=== PATIENT | male | born 1965 | race Caucasian/White ===

== ENCOUNTER 2023-07-02 13:28 | Inpatient (IN) | payer OTHER ==
[~2023-07-02] VITALS: Ht 193 cm; Wt 114.6 kg
[2023-07-02 15:32] LABS: International Normalized Ratio 2.06; Prothrombin Time Results 20.8 Sec (9.7-11.5)
[2023-07-02 15:41] LABS: Albumin, Blood 1.8 g/dL (3.4-5.0); Albumin/Globulin Ratio 0.4 (0.8-1.8); Bilirubin, Direct 23.8 mg/dL (0.0-0.3); Bilirubin, Indirect 2.1 mg/dL (0.1-0.7); Bilirubin, Total 25.9 mg/dL (0.1-1.0); Globulin, Blood 4.7 g/dL (2.2-4.0); Total Protein, Blood 6.5 g/dL (6.4-8.2)
[2023-07-02 17:25] LABS: Amylase, Body Fluid 42 U/L; Glucose, Body Fluid 115 mg/dL; Lactate Dehydrogenase, Body Fl 81 U/L; Protein, Body Fluid 1.3 g/dL
[2023-07-02 17:55] LABS: Body Fluid WBC Count 40 /mm3 (0-999)
[2023-07-02 18:04] LABS: RBC Count, Body Fluid 102 /mm3 (0-0)
[2023-07-02 19:12] VITALS: BP 113/73
[2023-07-02] MEDS ORDERED: ATOR10 PO (19:24)
[2023-07-02 19:51] LABS: Base Excess Venous 6.3 mmol/L; Bicarbonate Venous 29.1 mmol/L (24.0-30.0); PCO2 Venous 42.3 mmHg (38-42); pH Blood Venous 7.46 (7.34-7.37)
[2023-07-02 20:39] LABS: Appearance, Body Fluid Hazy (Clear); Color, Body Fluid Yellow (None-Yellow); Total Cell Count, Body Fluid 100
[2023-07-02 21:47] LABS: Albumin, Body Fluid 0.5 g/dL
--- NOTE | 2023-07-03 04:44 | NUR ---
SHIFT SUMMARY *CORI* ARRIVED TO THE UNIT AROUND 1939. PT WAS ALERT AND FULLY ORIENTED AND ABLE TO SELF TRANSFER TO THE BED. PT IS JAUNDICED. PT COMPLAINS OF "FULLNESS" SENSATION, BUT DENIES PAIN. THE PT HAD NO ACUTE EVENTS THIS SHIFT, AND IS RESTING IN BED WITH THE CALL LIGHT IN REACH. THE PATIENT'S MOTHER IS PRESENT IN THE ROOM. ADMIT COMPLETE.
[2023-07-03 05:12] VITALS: BP 113/82
[2023-07-03 05:25] LABS: International Normalized Ratio 2.23; Prothrombin Time Results 22.4 Sec (9.7-11.5)
[2023-07-03 05:45] LABS: Albumin, Blood 1.6 g/dL (3.4-5.0); Albumin/Globulin Ratio 0.4 (0.8-1.8); Bilirubin, Total 24.6 mg/dL (0.1-1.0); Calcium, Blood 8.2 mg/dL (8.5-10.1); Creatinine, Blood 0.93 mg/dL (0.60-1.20); Globulin, Blood 4.1 g/dL (2.2-4.0); Magnesium, Blood 2.2 mg/dL (1.6-2.4); Total Protein, Blood 5.7 g/dL (6.4-8.2)
[2023-07-03 07:11] LABS: Hematocrit 31.1 % (37.0-53.0); Mean Corpuscular Volume 108 fL (80-100); Mean Platelet Volume 11.3 fL (9.1-12.4); Platelet Count 162 K/mm3 (150-400); RDW Coefficient Variation 17.2 % (11.7-14.2); RDW Standard Deviation 67.9 fL (35.1-46.3); Red Blood Cell Count 2.89 M/mm3 (4.30-5.90); White Blood Cell Count 12.73 K/mm3 (4.00-11.30)
[2023-07-03 07:12] LABS: Hemoglobin 12.3 g/dL (13.5-17.5); Mean Corpuscular HGB 39.8 pg (26.0-34.0)
[2023-07-03 07:13] LABS: Mean Corpuscular HGB Conc 36.7 g/dL (31.5-36.5)
[2023-07-03 07:19] VITALS: BP 110/75
[2023-07-03 15:42] VITALS: BP 109/73
--- NOTE | 2023-07-03 17:48 | NUR ---
SHIFT SUMMARY- PT ALLERT, ORIENTED AND INDEPENDENT TO THE BATHROOM. HE HAD A SHOWER TODAY ANND HIS IV WAS ACCIDENTALLY DC'D. NEW IV PLACED IN THE RIGHT FORE ARM, CURRENTLY SALINE LOCKKED. PT MOTHER HAS REMAINED AT THE BEDSIDE T/O THE DAY AND SHE HAS DOTED ON AND PROVIDED CARE FOR THE PT. (AT ONE POINT SHE WAS TRIMMING HIS TOENAILS FOR HIM) PT ALERT AND ORIENTED BUT SEEMS A LITTLE SLOW TO UNDERSTAND SOME THINGS, HIS MOTHER SEEMS TO TRY TO BRIDGE THE GAP FOR HIM QUITE OFTEN. PT HAS DIFFICULTY SWALLOWING LARGE PILLS. HE WAS MEDICATED TWICE TODAY WITH PO POTASSIUM, HE WAS ABLE TO SWALLOW THE PILLS BROKEN IN HALF AND MELTED IN APPLE SAUCE. PT IS ON TELE A FLUTTER WITH A BBB AT 100. PT IS CURRENTLY SITTING AT THE EOB EATING DINNER. NO S&S OF DISTRESS AT THIS TIME.
[2023-07-03 19:48] VITALS: BP 105/68
--- NOTE | 2023-07-04 04:22 | NUR ---
PATIENT IS A/Ox4, BRIGHT AFFECT. NO C/O PAIN NOR DISCOMFORT STATED. PATIENT'S MOTHER AT BEDSIDE THROUGHOUT SHIFT. CONTINUES TO APPEAR JAUNDICED. CONTINUES ON TELE, AFLUTTER 80s TO 90s. INDEPENDENT IN ROOM. NO ACUTE CHANGES NOTED OVERNIGHT. BED LOCKED AND IN LOWEST POSITION, CALL LIGHT WITHIN REACH.
[2023-07-04 04:45] VITALS: BP 110/79
[2023-07-04 06:56] LABS: Albumin, Blood 1.6 g/dL (3.4-5.0); Albumin/Globulin Ratio 0.4 (0.8-1.8); Bun/Creatinine Ratio 15.8 (12.0-20.0); Calcium, Blood 8.2 mg/dL (8.5-10.1); Creatinine, Blood 0.95 mg/dL (0.60-1.20); Globulin, Blood 3.9 g/dL (2.2-4.0); Potassium, Blood 3.5 mmol/L (3.5-5.5); Total Protein, Blood 5.5 g/dL (6.4-8.2)
[2023-07-04 07:09] LABS: BASOPHILS ABSOLUTE AUTO 0.12 K/mm3 (0.00-0.23); BASOPHILS PERCENT AUTO 1 % (0-2); EOSINOPHILS ABSOLUTE AUTO 0.25 K/mm3 (0.00-0.68); EOSINOPHILS PERCENT AUTO 2 % (0-6); Hematocrit 30.3 % (37.0-53.0); IMMATURE GRAN ABSOLUTE AUTO 0.09 K/mm3 (0.00-0.10); IMMATURE GRAN PERCENT AUTO 1 % (0-1); LYMPHOCYTES ABSOLUTE AUTO 1.43 K/mm3 (0.84-5.20); LYMPHOCYTES PERCENT AUTO 12 % (21-46); MONOCYTES ABSOLUTE AUTO 1.19 K/mm3 (0.16-1.47); MONOCYTES PERCENT AUTO 10 % (4-13); Mean Corpuscular Volume 108 fL (80-100); Mean Platelet Volume 11.5 fL (9.1-12.4); NEUTROPHILS ABSOLUTE AUTO 8.74 K/mm3 (1.96-9.15); NEUTROPHILS PERCENT AUTO 74 % (41-73); Platelet Count 178 K/mm3 (150-400); RDW Coefficient Variation 17.2 % (11.7-14.2); RDW Standard Deviation 67.4 fL (35.1-46.3); White Blood Cell Count 11.82 K/mm3 (4.00-11.30)
[2023-07-04 07:11] LABS: Hemoglobin 10.6 g/dL (13.5-17.5)
[2023-07-04 07:12] LABS: Mean Corpuscular HGB 40.5 pg (26.0-34.0); Mean Corpuscular HGB Conc 37.2 g/dL (31.5-36.5)
[2023-07-04 07:40] VITALS: BP 111/80
[2023-07-04 08:11] LABS: HBSAG SCREEN Negative (Negative); HCV AB Non Reactive (Non Reactive); HEP A AB, IGM Negative (Negative); HEP B CORE AB, TOT Negative (Negative)
[2023-07-04 11:15] LABS: Stool Occult Blood Guaiac 1 Neg (Neg)
[2023-07-04 11:36] LABS: Percent Saturation 110.1 % (20.0-50.0)
[2023-07-04 17:15] VITALS: BP 114/75
[2023-07-04 19:22] VITALS: BP 112/78
--- NOTE | 2023-07-04 19:38 | NUR ---
SHIFT SUMMARY- PT HAS HAD NO ACUTE CHANGES T/O THE SHIFT. HE IS ALERT, ORIENTED AND INDEPENDENT IN THE ROOM. MOTHER IS AT THE BEDSIDE. PLAN IS FOR DISCHARGE TOMORROW MORNING. DR SOLORIO ORDERED PREDNISOLONE FOR THE PT DAILY, SPOKE TO HER ABOUT THE START TIME AND RECIEVED ORDER TO START IT TODAY RATHER THAN TOMORROW MORNING. ORDER CHANGED IN ORDER MANAGEMENT, PT RECIEVED THE FIRST DOSE TODAY. BBEDSIDE REPORT COMPLETED WITH NIGHT RRN. PT IN BED, CALL LIGHT IN REACH MOTHER AT THE BEDSIDE NO S&S OF DISTRESS NOTED.
[2023-07-05 02:17] VITALS: BP 116/84
--- NOTE | 2023-07-05 04:00 | NUR ---
SHIFT SUMMARY PT AWAKE DURING SHIFT REPORT, RESTING QUIETLY IN BED WATCHING TV. PT'S MOM AT BS. PT'S SKIN VERY JAUNDICED D/T LIVER FAILURE. PT ENCOURAGED TO STOP DRINKING. UP INDEPENDENTLY IN AND TO BTHRM. PT DENIED FURTHER NEEDS. NO C/O PAIN. CALL LT IN REACH.
[2023-07-05 06:14] LABS: BASOPHILS ABSOLUTE AUTO 0.02 K/mm3 (0.00-0.23); BASOPHILS PERCENT AUTO 0 % (0-2); EOSINOPHILS PERCENT AUTO 0 % (0-6); Hematocrit 32.4 % (37.0-53.0); Hemoglobin 11.8 g/dL (13.5-17.5); IMMATURE GRAN ABSOLUTE AUTO 0.08 K/mm3 (0.00-0.10); IMMATURE GRAN PERCENT AUTO 1 % (0-1); LYMPHOCYTES ABSOLUTE AUTO 0.87 K/mm3 (0.84-5.20); LYMPHOCYTES PERCENT AUTO 7 % (21-46); MONOCYTES ABSOLUTE AUTO 0.47 K/mm3 (0.16-1.47); MONOCYTES PERCENT AUTO 4 % (4-13); Mean Corpuscular HGB 39.9 pg (26.0-34.0); Mean Corpuscular HGB Conc 36.4 g/dL (31.5-36.5); Mean Corpuscular Volume 110 fL (80-100); Mean Platelet Volume 11.4 fL (9.1-12.4); NEUTROPHILS ABSOLUTE AUTO 10.71 K/mm3 (1.96-9.15); NEUTROPHILS PERCENT AUTO 88 % (41-73); Platelet Count 188 K/mm3 (150-400); RDW Coefficient Variation 17.1 % (11.7-14.2); RDW Standard Deviation 68.9 fL (35.1-46.3); Red Blood Cell Count 2.96 M/mm3 (4.30-5.90); White Blood Cell Count 12.15 K/mm3 (4.00-11.30)
[2023-07-05 06:53] LABS: Albumin, Blood 1.6 g/dL (3.4-5.0); Albumin/Globulin Ratio 0.4 (0.8-1.8); Bilirubin, Total 24.1 mg/dL (0.1-1.0); Bun/Creatinine Ratio 20.2 (12.0-20.0); Calcium, Blood 8.3 mg/dL (8.5-10.1); Creatinine, Blood 0.94 mg/dL (0.60-1.20); Potassium, Blood 3.4 mmol/L (3.5-5.5); Total Protein, Blood 5.6 g/dL (6.4-8.2)
[2023-07-05 07:38] VITALS: BP 115/79
[2023-07-05 15:43] VITALS: BP 121/74
--- NOTE | 2023-07-05 17:55 | NUR ---
DAYSHIFT SUMMARY Patient alert & oriented, denies pain or discomfort. Telemetry in place, aflutter & 98. Patient denies cardiac symptoms. MD wants to continue to monitor HR. Patients mom has concerns about plan of care and what the liver labs indicate. Will remain in hospital overnight. Vitals stable. Continue plan of care.
[2023-07-05 19:27] VITALS: BP 109/80
[2023-07-06 04:51] VITALS: BP 122/81
--- NOTE | 2023-07-06 04:52 | NUR ---
SHIFT SUMMARY: PT IS ADMITTED FOR ACUTE LIVER FAILURE IS A FULL CODE. IS ALERT AND ABLE TO MAKE NEEDS KNOWN. ADL S ARE 1P STANDBY. DENIES PAIN OR DISCOMFORT WHEN ASKED. GENARO REPORTS A-FLUTTER @ 109. IV TO RIGHT FOREARM IS PATENT WITH DRESSING BEING CDI. HIS APPEARANCE IS JANDANCE. ASCITES AND BORDERLINE 2+ EDEMA LOWER BI-LAT NOTED.
[2023-07-06 07:50] VITALS: BP 120/76
[2023-07-06 08:40] LABS: Hematocrit 34.6 % (37.0-53.0); Hemoglobin 12.9 g/dL (13.5-17.5); Mean Corpuscular HGB 40.4 pg (26.0-34.0); Mean Corpuscular HGB Conc 37.3 g/dL (31.5-36.5); Mean Corpuscular Volume 109 fL (80-100); Mean Platelet Volume 11.3 fL (9.1-12.4); Platelet Count 256 K/mm3 (150-400); RDW Coefficient Variation 16.8 % (11.7-14.2); RDW Standard Deviation 66.1 fL (35.1-46.3); Red Blood Cell Count 3.19 M/mm3 (4.30-5.90); White Blood Cell Count 18.24 K/mm3 (4.00-11.30)
[2023-07-06 08:56] LABS: International Normalized Ratio 2.25; Prothrombin Time Results 22.6 Sec (9.7-11.5)
[2023-07-06 09:13] LABS: Albumin, Blood 1.8 g/dL (3.4-5.0); Albumin/Globulin Ratio 0.4 (0.8-1.8); Bilirubin, Total 25.6 mg/dL (0.1-1.0); Bun/Creatinine Ratio 22.2 (12.0-20.0); Calcium, Blood 8.5 mg/dL (8.5-10.1); Creatinine, Blood 0.95 mg/dL (0.60-1.20); Globulin, Blood 4.6 g/dL (2.2-4.0); Potassium, Blood 3.4 mmol/L (3.5-5.5); Total Protein, Blood 6.4 g/dL (6.4-8.2)
[2023-07-06 19:36] VITALS: BP 118/81
[2023-07-07 04:47] VITALS: BP 112/77
[2023-07-07 05:57] LABS: BASOPHILS ABSOLUTE AUTO 0.02 K/mm3 (0.00-0.23); BASOPHILS PERCENT AUTO 0 % (0-2); EOSINOPHILS ABSOLUTE AUTO 0.01 K/mm3 (0.00-0.68); EOSINOPHILS PERCENT AUTO 0 % (0-6); Hematocrit 31.6 % (37.0-53.0); Hemoglobin 11.7 g/dL (13.5-17.5); IMMATURE GRAN ABSOLUTE AUTO 0.17 K/mm3 (0.00-0.10); IMMATURE GRAN PERCENT AUTO 1 % (0-1); LYMPHOCYTES ABSOLUTE AUTO 1.45 K/mm3 (0.84-5.20); LYMPHOCYTES PERCENT AUTO 10 % (21-46); MONOCYTES ABSOLUTE AUTO 1.39 K/mm3 (0.16-1.47); MONOCYTES PERCENT AUTO 9 % (4-13); Mean Corpuscular HGB 40.6 pg (26.0-34.0); Mean Corpuscular Volume 110 fL (80-100); Mean Platelet Volume 11.7 fL (9.1-12.4); NEUTROPHILS ABSOLUTE AUTO 12.01 K/mm3 (1.96-9.15); NEUTROPHILS PERCENT AUTO 80 % (41-73); Platelet Count 210 K/mm3 (150-400); RDW Coefficient Variation 16.8 % (11.7-14.2); Red Blood Cell Count 2.88 M/mm3 (4.30-5.90); White Blood Cell Count 15.05 K/mm3 (4.00-11.30)
--- NOTE | 2023-07-07 05:59 | NUR ---
SHIFT SUMMARY: PT IS ADMITTED FOR ACUTE LIVER FAILURE AND IS A FULL CODE. IS ALERT AND ABLE TO MAKE NEEDS KNOWN. ADLS ARE 1P STBY. DENIES ANY PAIN OR DISCOMFORT. GENARO REPORTS Landy-PAN @ 82.
[2023-07-07 06:45] LABS: Albumin, Blood 1.6 g/dL (3.4-5.0); Albumin/Globulin Ratio 0.4 (0.8-1.8); Bilirubin, Total 21.6 mg/dL (0.1-1.0); Calcium, Blood 7.9 mg/dL (8.5-10.1); Globulin, Blood 3.9 g/dL (2.2-4.0); Potassium, Blood 3.4 mmol/L (3.5-5.5); Total Protein, Blood 5.5 g/dL (6.4-8.2)
[2023-07-07 07:49] VITALS: BP 114/86
[2023-07-07 15:10] VITALS: BP 129/92
--- NOTE | 2023-07-07 16:35 | NUR ---
SHIFT SUMMARY PATIENT IS ALERT AND ORIENTED. PATIENT HAS HAD NO ACUTE EVENTS THIS SHIFT. VITAL SIGNS REVIEWED. PATIENT HAS BEEN IND IN ROOM THIS SHIFT. PATIENT HAS HAD NO COMPLAINTS OF NAUSEA, SOB PAIN OR VOMITTING THIS SHIFT. BED IN LOCKED AND LOWEST POSITION. CALL LIGHT IN PLACE. WILL MONITOR UNTIL SHIFT CHANGE.
[2023-07-07 20:00] VITALS: BP 125/96
[2023-07-08 05:18] VITALS: BP 115/86
[2023-07-08 05:27] LABS: International Normalized Ratio 1.9; Prothrombin Time Results 19.2 Sec (9.7-11.5)
[2023-07-08 05:50] LABS: Albumin, Blood 1.6 g/dL (3.4-5.0); Albumin/Globulin Ratio 0.4 (0.8-1.8); Bilirubin, Total 21.2 mg/dL (0.1-1.0); Bun/Creatinine Ratio 25.8 (12.0-20.0); Creatinine, Blood 0.93 mg/dL (0.60-1.20); Magnesium, Blood 2.5 mg/dL (1.6-2.4); Potassium, Blood 3.4 mmol/L (3.5-5.5); Total Protein, Blood 5.6 g/dL (6.4-8.2)
--- NOTE | 2023-07-08 06:29 | NUR ---
SHIFT SUMMARY: PT IS ADMITTED FOR ACUTE LIVER FAILURE AND IS A FULL CODE. IS ALERT AND ABLE TO MAKE NEEDS KNOWN. UP AD-ALEXANDRA IND THROUGH THE SHIFT. IV TO RIGHT FOREARM PATENT AND DRESSING CDI. PT STATED HE MIGHT GET TO GO HOME TODAY.
[2023-07-08 06:59] VITALS: BP 112/87
--- NOTE | 2023-07-08 17:24 | NUR ---
SHIFT SUMMARY AND PT HAND OFF- 1600 PT IS ALERT AND ORIENTED X4. CONSULTATION WITH DR. ALEGRE PLANNED FOR THIS EVENING. INDEPENDENT IN THE ROOM, R/A. PT IS JAUNDICE. DENIES C/P AND DISCOMFORT. DENIES SOB. PT IS ABLE TO MAKE HIS NEEDS KNOWN. MOTHER IS AT BEDSIDE. BED IS IN THE LOWEST POSITION WITH CALL LIGHT IN REACH
[2023-07-08 20:04] VITALS: BP 133/94
[2023-07-09] VITALS (10 sets, daily range): BP systolic 97–132; BP diastolic 62–91
--- NOTE | 2023-07-09 05:25 | NUR ---
SHIFT SUMMARY A/OX4. ROOM AIR. INDEPENDENT IN ROOM. ABLE TO MAKE NEEDS KNOWN. DR. ALEGRE CAME BY TO SEE PATIENT LAST NIGHT, PLAN FOR EGD THIS AFTERNOON. DIET IS WATER/ICE CHIPS ONLY. WILL SWITCH TO NPO AT 11 AM. BED LOCKED IN LOW POSITION.
--- NOTE | 2023-07-09 16:25 | NUR ---
07/09/23 1625 Alon Reina MONITOR INTACT WITH CONTINUOUS PULSE OXIMETRY, CONTINUOUS END TITAL CO2, AND INTERMITTENT BLOOD PRESSURE. History, Chart, Medications and Allergies reviewed before start of procedure. 3-LEAD EKG REVIEWED WITH PHYSICIAN PRIOR TO START OF PROCEDURE. O2 VIA N/C INTACT THROUGHOUT SEDATION/PROCEDURE. Bite Block Placed.
--- NOTE | 2023-07-09 18:54 | NUR ---
CALLED DR CALLAHAN- BP 109/64 NEW MEDS LASIX AND ALDACTONE. OK TO GIVE BOTH AT THIS TIME.
--- NOTE | 2023-07-09 19:55 | NUR ---
SHIFT SUMMARY- PT HAD AN EGD THIS EVENING AND NO VARICIES WERE FOUND. PT STARTED ON FLUCONIZOLE FOR DRAKE INFECTION FOUND. PER DR ALEGRE PT CAN BE DISCHARGED TOMORROW FROM HIS STANDPOINT. HE TOLD PT AND HIS MOTHER THIS WELL. BEDSIDE REPORT COMPLETED WITH NIGHT RN, PT IN BED, CALL LIGHT IN REACH NO S&S OF DISTRESS.
[2023-07-10 00:27] VITALS: BP 109/79
[2023-07-10 04:35] VITALS: BP 118/81
--- NOTE | 2023-07-10 05:02 | NUR ---
SHIFT SUMMARY PT SITTING UP IN BED DURING BEDSIDE ROUNDS- PT DENIES PAIN, SOB- PT UP INDEPENDENT IN ROOM- PT UP OFTEN IN THE NIGHT D/T DIURETICS GIVEN AT BEGINNING OF SHIFT-BED LOW POSITION, CALL LIGHT WITHIN REACH- PT DENIED CONCERNS RE: DISCHARGE, MOM IN TOWN TO TAKE HOME IF DISCHARGE
[2023-07-10 05:52] LABS: International Normalized Ratio 2.18; Prothrombin Time Results 21.9 Sec (9.7-11.5)
[2023-07-10 06:19] LABS: Albumin, Blood 1.7 g/dL (3.4-5.0); Albumin/Globulin Ratio 0.4 (0.8-1.8); Bilirubin, Total 24.8 mg/dL (0.1-1.0); Bun/Creatinine Ratio 19.8 (12.0-20.0); Calcium, Blood 8.1 mg/dL (8.5-10.1); Creatinine, Blood 1.11 mg/dL (0.60-1.20); Globulin, Blood 4.1 g/dL (2.2-4.0); Potassium, Blood 3.7 mmol/L (3.5-5.5); Total Protein, Blood 5.8 g/dL (6.4-8.2)
[2023-07-10 07:44] VITALS: BP 113/70
[2023-07-10] MEDS ORDERED: FURO20 PO (12:04)
[2023-07-10] MEDS ORDERED: Diflucan100 MG PO (12:04)
[2023-07-10] MEDS ORDERED: B-1100 M1 PO (12:05)
[2023-07-10] MEDS ORDERED: SPIR25 PO (12:05)
[2023-07-10] MEDS ORDERED: MULVITA PO (12:06)
--- NOTE | 2023-07-10 15:33 | NUR ---
DISCHARGE NOTE- PT WAS GIVEN VERBAL AND WRITTEN DISCHARGE INSTRUCTIONS AND ACKNOWLEDGED UNDERSTANDING OF THEM. MOTHER PRESENT FOR DISCHARGE AND ASKED ALL OF HER QUESTIONS, THEY WERE ALL ANSWERED TO HER SATISFACTION. PT IV WAS DC'D. PT MOTHER IS FILLING OUT [employer] PAPERWORK FOR THE [facility] SO THAT THE MEDICAL RECORDS FROM THIS VISIT CAN BE FAXED TO THEM. PT WILL BE ESCORTED OUT VIA WC BY THE CONCRETE TRUCK DRIVER ONCE THE PAPERWORK IS DONE.
== END 2023-07-10 15:56 | disposition home or self-care (01) | DRG 433 ==
LOC: ER 13:28 → MEDS 13:29 → ENPENDDIS 07-10 11:52 → MEDS 07-10 15:56
PROVIDERS: Internal Medicine; Nurse Practitioner Acute Care; Student in an Organized Health Care Education/Training Program; ADMIT Family Medicine
PROC: 0W9G3ZX Drainage of Peritoneal Cavity, Percutaneous Approach, Diagnostic (ICD-10-PCS; principal; 2023-07-02)
PROC: HZ2ZZZZ Detoxification Services for Substance Abuse Treatment (ICD-10-PCS; 2023-07-03)
PROC: B24BZZZ Ultrasonography of Heart with Aorta (ICD-10-PCS; 2023-07-03)
PROC: 0DJ08ZZ Inspection of Upper Intestinal Tract, Via Natural or Artificial Opening Endoscopic (ICD-10-PCS; 2023-07-09)
DX: K70.11 Alcoholic hepatitis with ascites (principal); B37.81 Candidal esophagitis; D68.9 Coagulation defect, unspecified; K76.6 Portal hypertension; I48.92 Unspecified atrial flutter; E72.20 Disorder of urea cycle metabolism, unspecified; K70.31 Alcoholic cirrhosis of liver with ascites; I86.8 Varicose veins of other specified sites; D63.8 Anemia in other chronic diseases classified elsewhere; E87.6 Hypokalemia; D53.9 Nutritional anemia, unspecified; E78.5 Hyperlipidemia, unspecified; F10.20 Alcohol dependence, uncomplicated; K76.0 Fatty (change of) liver, not elsewhere classified; E88.09 Other disorders of plasma-protein metabolism, not elsewhere classified; R60.0 Localized edema
CPT/HCPCS: 36415; 71045; 74177; 80053; 80076; 82042; 82140; 82150; 82247; 82272; 82607; 82728; 82746; 82803; 82945; 83540; 83550; 83615; 83735; 84132; 84157; 84443; 85025; 85027; 85610; 85730; 86704; 86708; 86803; 87070; 87205; 87340; 88108; 88305; 89051; 93005; 93010; 93306; 96365-59; 96375; 99285-25; A9270; G0378; J0696; J3480; J7120; Q9967